=== PATIENT | male | born 1980 | race Caucasian/White ===

== ENCOUNTER → 2019-03-12 10:35 | Outpatient (CLI) | payer OTHER, SELFPAY ==
--- NOTE | 2019-03-12 | DI.MRI.S_ITS ---
PROCEDURE: MR HEAD/BRAIN WO CON INDICATIONS: Neuralgia and neuritis, unspecified TECHNIQUE: Noncontrast axial T1 spin echo, axial T2 fast spin echo, sagittal and axial FLAIR, coronal T2 fast spin echo, axial gradient echo, axial diffusion and ADC through the brain. COMPARISON: None. FINDINGS: Image quality: Excellent. CSF Spaces: Basal cisterns are patent. No extra-axial fluid collections. Ventricles are normal in size and shape. Brain: No intracranial masses or hemorrhage. Rocha/white matter interface is normal. Brainstem appears normal. Diffusion-weighted images demonstrate no acute ischemic insult. No chronic ischemic insults. Normal intravascular flow voids are present. Skull and face: Calvarium has normal marrow signal. Orbits appear normal. Sinuses: Sinuses demonstrate mild pansinus mucosal thickening. There is a prominent left maxillary retention cyst vs polyp. IMPRESSION: 1. No acute intracranial process. 2. Silva sinus disease. Dictated by: Basia Hancock M.D. on 03/12/2019 at 12:01 Approved by: Basia Hancock M.D. on 03/12/2019 at 12:11
== END ==
PROVIDERS: Visit Provider Family Medicine
DX: M79.2 Neuralgia and neuritis, unspecified (principal); J32.4 Chronic pansinusitis; R20.8 Other disturbances of skin sensation
CPT/HCPCS: 70551